=== PATIENT | female | born 1960 | race Caucasian/White ===

== ENCOUNTER 2023-06-14 21:51 | Emergency (ER) | payer MEDICARE, MEDICAID ==
[~2023-06-14] VITALS: Ht 162.6 cm; Wt 106.1 kg
[~2023-06-14 21:51] MED LIST: CYCL-1 PO; DULO60CA59 PO; ESOM40CA PO; LURA60TA PO; OXYC-150 PO
[2023-06-14 21:57] VITALS: TEMP 97
[2023-06-15] MEDS ORDERED: LIDO700A32 TOP (00:14)
[2023-06-15] MEDS ORDERED: LIDOcaine 5% patch TP ONE (00:15)
[2023-06-15] MEDS ORDERED: ketorolac trometh inj. 60 MG/2 ML VIAL IM ONE (00:15)
[2023-06-15 00:54] VITALS: BP 121/94; PULSE 78; RESP 15; O2SAT 96
== END 2023-06-15 00:56 | disposition home or self-care (01) ==
LOC: ER 21:53
DX: R07.81 Pleurodynia (principal); K21.9 Gastro-esophageal reflux disease without esophagitis; F32.A Depression, unspecified; Z98.890 Other specified postprocedural states
CPT/HCPCS: 71046; 96372; 99283; J1885

== ENCOUNTER 2024-02-05 12:08 | Inpatient (IN) | payer MEDICARE, MEDICAID ==
[~2024-02-05] VITALS: Ht 163.8 cm; Wt 100.7 kg
[~2024-02-05 12:08] MED LIST changes: +LIDO700A32 TOP
[2024-02-05] MEDS: ipratropium/albuterol 3ml nebule NEB ONE (12:57)
[2024-02-05 12:58] VITALS: PULSE 80; RESP 20; O2SAT 94
[2024-02-05 13:05] VITALS: PULSE 85; RESP 18; O2SAT 96
[2024-02-05 13:09] LABS: HEMOGLOBIN 13.3 g/dl (12.0-16.0); WHITE BLOOD COUNT 3.1 X10'3 (4.5-11.0)
[2024-02-05 13:11] LABS: BASOPHILS % (AUTO) 0.4 % (0-1); EOSINOPHILS % (AUTO) 0 % (0-6); HEMATOCRIT 39.1 % (35.0-45.0); LYMPHOCYTES # (AUTO) 0.6 X10'3 (1.1-4.8); LYMPHOCYTES % (AUTO) 18.7 % (21-51); MEAN CORPUSCULAR HEMOGLOBIN 35.6 PG (27.0-31.0); MEAN CORPUSCULAR VOLUME 104.6 FL (78-98); MONOCYTES # (AUTO) 0.2 X10'3 (0-0.9); MONOCYTES % (AUTO) 7.7 % (2-12); NEUTROPHILS # (AUTO) 2.3 X10'3 (1.8-7.7); NEUTROPHILS % (AUTO) 73.2 % (42-75); PLATELET COUNT 141 X10'3 (140-440); RED BLOOD COUNT 3.73 X10'6 (4.20-5.60); RED CELL DISTRIBUTION WIDTH 13.3 % (11.5-14.5)
[2024-02-05] MEDS: methylPREDNISolone sod succ 125mg/2ml vial IV ONE (13:19)
[2024-02-05 13:22] LABS: ALANINE AMINOTRANSFERASE 24 U/L (12-78); ALBUMIN 2.9 G/DL (3.4-5.0); ALBUMIN/GLOBULIN RATIO 0.7 (1.1-1.5); ALKALINE PHOSPHATASE 86 IU/L (46-116); ANION GAP 10 (8-16); ASPARTATE AMINO TRANSFERASE 35 U/L (10-37); BILIRUBIN,TOTAL 0.3 MG/DL (0.1-1.0); BLOOD UREA NITROGEN 5 MG/DL (7-18); BUN/CREATININE RATIO 5.1 (10.0-20.0); CALCIUM 8.1 MG/DL (8.5-10.1); CHLORIDE 101 MMOL/L (99-107); CREATININE 0.98 MG/DL (0.40-0.90); GLUCOSE 100 MG/DL (70-104); POTASSIUM 3.4 MMOL/L (3.5-5.1); SODIUM 138 MMOL/L (135-145); TOTAL CARBON DIOXIDE 26.8 MMOL/L (24-32); TOTAL PROTEIN 7.1 G/DL (6.4-8.2); eCRCL 52 ML/MIN; eGFR 58 ML/MIN
[2024-02-05 13:30] LABS: C-REACTIVE PROTEIN 3.15 MG/DL (0.0-0.5); PRO BRAIN NATRIURETIC PEPTIDE 156 PG/ML (0-125)
[2024-02-05] MEDS ORDERED: CefTRIAXone/D5W-Rocephin 1gm 50 ML IV ONE (14:25)
[2024-02-05] MEDS ORDERED: CEFD300C3 PO (14:26)
[2024-02-05] MEDS ORDERED: ALBU18HF2 INH (14:26)
[2024-02-05] MEDS ORDERED: PRED20TA PO (14:26)
[2024-02-05] MEDS ORDERED: DOXY-1 PO (14:26)
[2024-02-05] MEDS ORDERED: LEVO-65 PO (14:31)
[2024-02-05] MEDS: azithromycin/NS 500mg/250ml 250 ML IV ONE (14:35)
[2024-02-05] MEDS ORDERED: magnesium hydroxide 30ml (MOM) UD suspension PO PRN (15:20)
[2024-02-05] MEDS ORDERED: potassium Cl 40MEQ/1/2NS 520ml 520 ML IV PRN (15:20)
[2024-02-05] MEDS ORDERED: ondansetron/PF 4mg/2ml inj IV PRN (15:20)
[2024-02-05] MEDS ORDERED: magnesium sulf-water 2g/50mL 50 ML IV PRN (15:20)
[2024-02-05] MEDS ORDERED: mag hydrox/Alum hydrox/simeth 30ml oral suspension PO PRN (15:20)
[2024-02-05] MEDS ORDERED: acetaminophen 325mg tablet PO PRN (15:20)
[2024-02-05] MEDS ORDERED: magnesium sulf-water 4G/100mL 100 ML IV PRN (15:20)
[2024-02-05] MEDS ORDERED: potassium Cl 20 mEq SR tablet PO PRN (15:20)
[2024-02-05] MEDS ORDERED: magnesium Cl slow-release 64mg tablet PO PRN (15:20)
[2024-02-05] MEDS: levoFLOXACIN-Levaquin 750MG/D5 150 ML IV STA (16:38)
[2024-02-05] MEDS ORDERED: levoFLOXACIN-Levaquin 750MG/D5 150 ML IV SCH (16:40)
[2024-02-05] MEDS ORDERED: albuterol 2.5 MG/3 ML nebule NEB PRN (17:10)
[2024-02-05 18:00] VITALS: BP 102/63; PULSE 76; RESP 20; TEMP 99.3; O2SAT 92
[2024-02-05] MEDS: ringers solution, lacted 1,000 ML IV SCH (18:23)
[2024-02-05 19:42] VITALS: PULSE 76; RESP 18; O2SAT 94
[2024-02-05] MEDS: docusate sod 100mg capsule PO SCH (20:00)
[2024-02-05] MEDS: K and/or MAG REPLACEMENT MC SCH (20:14)
[2024-02-05] MEDS: guaiFENesin ER 600mg tablet PO SCH (20:28)
[2024-02-05] MEDS: traZODone 50mg tablet PO SCH (20:28)
[2024-02-05] MEDS: pramipexole 0.25mg tablet PO SCH (20:29)
[2024-02-05] MEDS: heparin, porcine 5000 units/ml vial SQ SCH (20:29)
[2024-02-05] MEDS: potassium Cl 20 mEq SR tablet PO PRN (20:30)
[2024-02-05 22:00] VITALS: BP 125/68; PULSE 77; RESP 20; TEMP 98.8; O2SAT 93
[2024-02-05] MEDS: oxyCODONE/APAP 10/325mg tablet PO PRN (22:03)
[2024-02-05] MEDS ORDERED: SERT25TA PO (23:38)
[2024-02-06] VITALS (13 sets, daily range): BP systolic 103–125; BP diastolic 61–77; PULSE 67–77; RESP 13–19; TEMP 97–98.7; O2SAT 91–99
[2024-02-06] MEDS ORDERED: gabapentin 400mg capsule PO SCH
[2024-02-06] MEDS: gabapentin 300mg capsule PO SCH (02:20)
[2024-02-06 06:14] LABS: BASOPHILS % (AUTO) 0.3 % (0-1); EOSINOPHILS % (AUTO) 0 % (0-6); HEMOGLOBIN 12.7 g/dl (12.0-16.0); LYMPHOCYTES # (AUTO) 0.4 X10'3 (1.1-4.8); LYMPHOCYTES % (AUTO) 23.2 % (21-51); MEAN CORPUSCULAR HEMOGLOBIN 35.3 PG (27.0-31.0); MEAN CORPUSCULAR HGB CONC 33.5 g/dL (33.0-36.5); MEAN CORPUSCULAR VOLUME 105.4 FL (78-98); MEAN PLATELET VOLUME 6.8 FL (7.4-10.4); MONOCYTES # (AUTO) 0.2 X10'3 (0-0.9); MONOCYTES % (AUTO) 10.1 % (2-12); NEUTROPHILS # (AUTO) 1.1 X10'3 (1.8-7.7); NEUTROPHILS % (AUTO) 66.4 % (42-75); PLATELET COUNT 117 X10'3 (140-440); RED CELL DISTRIBUTION WIDTH 13.6 % (11.5-14.5); WHITE BLOOD COUNT 1.7 X10'3 (4.5-11.0)
[2024-02-06 06:24] LABS: APTT 29 SECONDS (22-32); PROTHROMBIN TIME 10.6 SECONDS (9.0-12.0)
[2024-02-06 06:36] LABS: ALANINE AMINOTRANSFERASE 22 U/L (12-78); ALBUMIN 2.6 G/DL (3.4-5.0); ALBUMIN/GLOBULIN RATIO 0.6 (1.1-1.5); ALKALINE PHOSPHATASE 73 IU/L (46-116); ANION GAP 6 (8-16); ASPARTATE AMINO TRANSFERASE 28 U/L (10-37); BILIRUBIN,TOTAL 0.3 MG/DL (0.1-1.0); BLOOD UREA NITROGEN 11 MG/DL (7-18); BUN/CREATININE RATIO 11.7 (10.0-20.0); CALCIUM 8.5 MG/DL (8.5-10.1); CHLORIDE 104 MMOL/L (99-107); CREATININE 0.94 MG/DL (0.40-0.90); GLUCOSE 131 MG/DL (70-104); MAGNESIUM 1.9 MG/DL (1.5-2.4); PHOSPHORUS 2.7 MG/DL (2.3-4.5); POTASSIUM 4.3 MMOL/L (3.5-5.1); SODIUM 140 MMOL/L (135-145); TOTAL CARBON DIOXIDE 29.7 MMOL/L (24-32); TOTAL PROTEIN 6.9 G/DL (6.4-8.2); eCRCL 55 ML/MIN; eGFR 60 ML/MIN
[2024-02-06 07:11] LABS: PLATELET ESTIMATE DECREASED; TOTAL CELLS COUNTED 100
[2024-02-06] MEDS: pantoprazole 40mg Tablet.DR PO SCH (07:41)
[2024-02-06] MEDS: sertraline 50mg tablet PO SCH (08:38)
[2024-02-06 09:01] LABS: D-DIMER 0.64 MG/L FEU (0-0.50)
[2024-02-06 10:44] LABS: BILIRUBIN,URINE NEGATIVE (Neg); CLARITY,URINE SLIGHTLY CLOUDY (Clear); COLOR,URINE YELLOW (Yellow); GLUCOSE, URINE NEGATIVE (Neg); KETONES,URINE NEGATIVE (Neg); LEUKOCYTE ESTERASE ,URINE TRACE (Neg); NITRITES, URINE NEGATIVE (Neg); OCCULT BLOOD,URINE SMALL (Neg); PH,URINE 6.5 (4.8-8.0); PROTEIN,URINE NEGATIVE (Neg); UROBILINOGEN,URINE 0.2 E.U/dL (0.2-1.0)
[2024-02-06 10:50] LABS: UA COLLECTION TYPE NON-SPECIFIED
[2024-02-06 10:51] LABS: SQUAMOUS EPITHELIAL CELL,UR MANY /LPF (FEW)
[2024-02-06 10:52] LABS: BACTERIA,URINE FEW /HPF (Neg); HYALINE CASTS 0-3 /LPF (NEGATIVE); MUCUS STRANDS FEW /LPF (Neg); YEAST FEW /HPF (NEGATIVE)
[2024-02-06 10:53] LABS: WBC,URINE 0-4 /HPF (0-4)
[2024-02-06 11:06] LABS: URINE AMPHETAMINE SCREEN NEGATIVE (Neg); URINE BARBITUATE SCREEN NEGATIVE (Neg); URINE BENZODIAZEPINES SCREEN NEGATIVE (Neg); URINE CANNABINOID SCREEN NEGATIVE (Neg); URINE COCAINE SCREEN NEGATIVE (Neg); URINE METHADONE SCREEN NEGATIVE (Neg); URINE OPIATE SCREEN POSITIVE (Neg); URINE PHENCYCLIDINE SCREEN NEGATIVE (Neg)
[2024-02-06] MEDS: furosemide 40mg/4ml inj IV ONE (11:55)
[2024-02-06] MEDS: methylPREDNISolone sod succ 125mg/2ml vial IV SCH (11:55)
[2024-02-06] MEDS ORDERED: albuterol 2.5 MG/3 ML nebule NEB SCH (13:40)
[2024-02-06] MEDS: nystatin 15 GM powder TP SCH (13:52)
[2024-02-06] MEDS: ipratropium/albuterol 3ml nebule NEB PRN (15:11)
[2024-02-06] MEDS: levoFLOXACIN-Levaquin 750MG/D5 150 ML IV SCH (16:02)
[2024-02-06] MEDS: albuterol 2.5 MG/3 ML nebule NEB SCH (21:05)
[2024-02-07] VITALS (8 sets, daily range): BP systolic 101–141; BP diastolic 63–77; PULSE 66–77; RESP 16–18; TEMP 97.5–98.4; O2SAT 91–94
[2024-02-07 05:52] LABS: BASOPHILS % (AUTO) 0.1 % (0-1); EOSINOPHILS % (AUTO) 0 % (0-6); HEMATOCRIT 39.9 % (35.0-45.0); HEMOGLOBIN 13.5 g/dl (12.0-16.0); LYMPHOCYTES # (AUTO) 0.3 X10'3 (1.1-4.8); MEAN CORPUSCULAR HEMOGLOBIN 35.7 PG (27.0-31.0); MEAN CORPUSCULAR HGB CONC 33.7 g/dL (33.0-36.5); MEAN CORPUSCULAR VOLUME 105.8 FL (78-98); MEAN PLATELET VOLUME 7.2 FL (7.4-10.4); MONOCYTES # (AUTO) 0.4 X10'3 (0-0.9); MONOCYTES % (AUTO) 9.3 % (2-12); NEUTROPHILS # (AUTO) 4.1 X10'3 (1.8-7.7); NEUTROPHILS % (AUTO) 84.6 % (42-75); PLATELET COUNT 133 X10'3 (140-440); RED BLOOD COUNT 3.77 X10'6 (4.20-5.60); RED CELL DISTRIBUTION WIDTH 13.7 % (11.5-14.5); WHITE BLOOD COUNT 4.8 X10'3 (4.5-11.0)
[2024-02-07 05:58] LABS: APTT 25 SECONDS (22-32); PROTHROMBIN TIME 10.3 SECONDS (9.0-12.0)
[2024-02-07 06:30] LABS: ALANINE AMINOTRANSFERASE 25 U/L (12-78); ALBUMIN 2.7 G/DL (3.4-5.0); ALBUMIN/GLOBULIN RATIO 0.6 (1.1-1.5); ALKALINE PHOSPHATASE 68 IU/L (46-116); ANION GAP 9 (8-16); ASPARTATE AMINO TRANSFERASE 27 U/L (10-37); BILIRUBIN,TOTAL 0.3 MG/DL (0.1-1.0); BLOOD UREA NITROGEN 15 MG/DL (7-18); BUN/CREATININE RATIO 14.9 (10.0-20.0); CALCIUM 8.7 MG/DL (8.5-10.1); CHLORIDE 101 MMOL/L (99-107); CREATININE 1.01 MG/DL (0.40-0.90); GLUCOSE 132 MG/DL (70-104); MAGNESIUM 2.1 MG/DL (1.5-2.4); PHOSPHORUS 3.2 MG/DL (2.3-4.5); POTASSIUM 3.9 MMOL/L (3.5-5.1); SODIUM 139 MMOL/L (135-145); TOTAL CARBON DIOXIDE 28.7 MMOL/L (24-32); TOTAL PROTEIN 7.3 G/DL (6.4-8.2); eCRCL 51 ML/MIN; eGFR 56 ML/MIN
[2024-02-07] MEDS: furosemide 40mg/4ml inj IV SCH (09:01)
[2024-02-07] MEDS ORDERED: PRED10TA PO (13:45)
[2024-02-07] MEDS ORDERED: FURO-150 PO (13:45)
[2024-02-07] MEDS ORDERED: LEVO750T68 PO ×2 (13:45→17:14)
[2024-02-07] MEDS ORDERED: FLUC100T40 PO (17:33)
[2024-02-08] MEDS ORDERED: levoFLOXACIN 750MG TABLET PO SCH (11:00)
== END 2024-02-07 16:10 | disposition home or self-care (01) | DRG 177 ==
LOC: ER 12:09 → ED HOLD 15:22 → PCU 3S 19:00
PROVIDERS: ADMIT Internal Medicine; ATTEND Internal Medicine
DX: B37.1 Pulmonary candidiasis (principal); I26.09 Other pulmonary embolism with acute cor pulmonale; J96.01 Acute respiratory failure with hypoxia; R65.11 Systemic inflammatory response syndrome (SIRS) of non-infectious origin with acute organ dysfunction; J44.1 Chronic obstructive pulmonary disease with (acute) exacerbation; J44.0 Chronic obstructive pulmonary disease with (acute) lower respiratory infection; M06.9 Rheumatoid arthritis, unspecified; G89.29 Other chronic pain; Z96.653 Presence of artificial knee joint, bilateral; F41.9 Anxiety disorder, unspecified; G25.81 Restless legs syndrome; D75.89 Other specified diseases of blood and blood-forming organs; Z20.822 Contact with and (suspected) exposure to COVID-19; F32.A Depression, unspecified; D70.9 Neutropenia, unspecified; K21.9 Gastro-esophageal reflux disease without esophagitis; M54.9 Dorsalgia, unspecified; Z88.0 Allergy status to penicillin; Z87.891 Personal history of nicotine dependence; Z79.899 Other long term (current) drug therapy; Z90.49 Acquired absence of other specified parts of digestive tract; Z91.09 Other allergy status, other than to drugs and biological substances
CPT/HCPCS: 36415; 71045; 71250; 80053; 80305; 81001; 83605; 83735; 83880; 84100; 84145; 84484; 85007; 85025; 85379; 85610; 85730; 86140; 87040; 87070; 87081; 87502; 87503; 87811; 93005; 93306; 94640; 94664; 94760; 96374; 96375; 99285; A4615; A6258; G0378; J0456; J1644; J1940; J1956; J2919; J7120

== ENCOUNTER 2024-02-29 11:58 | Emergency (ER) | payer MEDICARE, MEDICAID ==
[~2024-02-29] VITALS: Ht 162.6 cm; Wt 101.3 kg
[~2024-02-29 11:58] MED LIST changes: +FURO-150 PO; +LEVO750T68 PO; -LIDO700A32 TOP; +PRED10TA PO; +SERT25TA PO
[2024-02-29 13:43] LABS: BASOPHILS % (AUTO) 0.2 % (0-1); EOSINOPHILS # (AUTO) 0.1 X10'3 (0-0.9); EOSINOPHILS % (AUTO) 0.8 % (0-6); HEMATOCRIT 38.3 % (35.0-45.0); HEMOGLOBIN 12.9 g/dl (12.0-16.0); LYMPHOCYTES # (AUTO) 0.9 X10'3 (1.1-4.8); LYMPHOCYTES % (AUTO) 7.8 % (21-51); MEAN CORPUSCULAR HEMOGLOBIN 34.6 PG (27.0-31.0); MEAN CORPUSCULAR HGB CONC 33.6 g/dL (33.0-36.5); MEAN CORPUSCULAR VOLUME 102.9 FL (78-98); MONOCYTES # (AUTO) 0.6 X10'3 (0-0.9); MONOCYTES % (AUTO) 5.7 % (2-12); NEUTROPHILS # (AUTO) 9.6 X10'3 (1.8-7.7); NEUTROPHILS % (AUTO) 85.5 % (42-75); PLATELET COUNT 159 X10'3 (140-440); RED BLOOD COUNT 3.73 X10'6 (4.20-5.60); RED CELL DISTRIBUTION WIDTH 13.8 % (11.5-14.5); WHITE BLOOD COUNT 11.3 X10'3 (4.5-11.0)
[2024-02-29 14:03] LABS: ALBUMIN 2.9 G/DL (3.4-5.0); ANION GAP 5 (8-16); BLOOD UREA NITROGEN 12 MG/DL (7-18); BUN/CREATININE RATIO 14.1 (10.0-20.0); CALCIUM 8.4 MG/DL (8.5-10.1); CHLORIDE 103 MMOL/L (99-107); CREATININE 0.85 MG/DL (0.40-0.90); GLUCOSE 113 MG/DL (70-104); POTASSIUM 3.2 MMOL/L (3.5-5.1); PRO BRAIN NATRIURETIC PEPTIDE 106 PG/ML (0-125); SODIUM 136 MMOL/L (135-145); eCRCL 59 ML/MIN; eGFR 68 ML/MIN
[2024-02-29] MEDS ORDERED: ipratropium/albuterol 3ml nebule NEB ONE (14:20)
[2024-02-29] MEDS: predniSONE 20 mg tablet PO ONE (14:58)
[2024-02-29] MEDS ORDERED: NIRM1TAB9 PO (15:34)
[2024-02-29] MEDS ORDERED: PRED20TA PO (15:34)
[2024-02-29 16:07] VITALS: BP 106/67; PULSE 82; RESP 14; TEMP 97.1; O2SAT 98
== END 2024-02-29 16:09 | disposition home or self-care (01) ==
LOC: ER 11:58
DX: U07.1 COVID-19 (principal); J20.9 Acute bronchitis, unspecified; K21.9 Gastro-esophageal reflux disease without esophagitis; G89.29 Other chronic pain; F17.210 Nicotine dependence, cigarettes, uncomplicated; J44.9 Chronic obstructive pulmonary disease, unspecified; Z88.0 Allergy status to penicillin; Z79.899 Other long term (current) drug therapy; Z88.1 Allergy status to other antibiotic agents; Z90.49 Acquired absence of other specified parts of digestive tract
CPT/HCPCS: 36415; 71046; 80048; 83605; 83880; 84145; 85025; 87040; 99284; J7512

== ENCOUNTER 2024-03-06 15:16 | Emergency (ER) | payer MEDICARE, MEDICAID ==
[~2024-03-06] VITALS: Ht 162.6 cm; Wt 103.0 kg
[~2024-03-06 15:16] MED LIST changes: +NIRM1TAB9 PO; +PRED20TA PO
[2024-03-06 15:36] VITALS: BP 163/93; PULSE 102; RESP 16; TEMP 98.2; O2SAT 95
[2024-03-06] MEDS ORDERED: CLOT10TR5 PO (16:00)
== END 2024-03-06 16:09 | disposition home or self-care (01) ==
LOC: ER 15:17
DX: U07.1 COVID-19 (principal); B37.0 Candidal stomatitis; J44.9 Chronic obstructive pulmonary disease, unspecified; K21.9 Gastro-esophageal reflux disease without esophagitis; G89.29 Other chronic pain; M54.9 Dorsalgia, unspecified; F41.9 Anxiety disorder, unspecified; Z90.49 Acquired absence of other specified parts of digestive tract; Z98.890 Other specified postprocedural states; Z88.0 Allergy status to penicillin; Z79.899 Other long term (current) drug therapy; Z79.2 Long term (current) use of antibiotics; Z79.52 Long term (current) use of systemic steroids
CPT/HCPCS: 99283

== ENCOUNTER 2024-10-23 23:31 | Emergency (ER) | payer MEDICARE, MEDICAID ==
[~2024-10-23] VITALS: Ht 165.1 cm; Wt 109.1 kg
[~2024-10-23 23:31] MED LIST changes: -PRED20TA PO
--- NOTE | 2024-10-24 00:53 | Physician Documentation ---
History of Present Illness ~ Chief Complaint: Knee Pain Stated Complaint: KNEE INFECTION Time Seen by MD: 00:47 Primary Medical Doctor: ALEENA DAMON Patient presents to the emergency room for evaluation of knee and right arm pain. Patient's history is complicated because of septic arthritis of her right knee. Hardware was recently taken out by [facility] and a place her was inserted until the infection gets under control. Patient has a PICC line placed in her right upper extremity. Tetanus witin 5 years: Yes Medication Reconciliation Allergies: Coded Allergies: Penicillins (Verified Allergy, Unknown, 02/29/24) Uncoded Allergies: TAPE (Allergy, Unknown, 12/24/15) Scheduled Duloxetine HCl (Cymbalta), 1 CAP PO HS, (Reported) Esomeprazole Magnesium (Nexium), 1 CAP PO DAILY, (Reported) Furosemide (Lasix), 20 MG PO DAILY Levofloxacin (Levofloxacin), 750 MG PO DAILY Lurasidone HCl (Latuda), 2 TAB PO QDD, (Reported) Nirmatrelvir/Ritonavir (Paxlovid 300-100 mg Dose Pack), 3 TAB PO BID Prednisone (Prednisone), 10 MG PO DAILY Sertraline Hcl* (Zoloft*), 2 TAB PO HS, (Reported) Scheduled PRN Cyclobenzaprine* (Cyclobenzaprine*), 1 TABLET PO Q8H PRN for muscle spasms, (Reported) Oxycodone HCl/Acetaminophen (Percocet 10-325 mg Tablet), 1 TAB PO Q4H PRN for pa in, (Reported) Past Medical History Past Medical History: COPD, Pneumonia, GERD, Chronic Back Pain, Anxiety Past Surgical History: cholecystectomy, orthopedic surgeries Alcohol Use: None Drug Use: none Lives In: Home Physical Exam Vital Signs: Temperature: 99.2, Source: Oral, Heart Rate: 103, Respiratory Rate: 20, BP: 131/89, Pulse Oximetry: 95, Weight: 109.090 Oxygen Flow Rate: 2.0 Procedures Procedures Shoulder arthrocentesis Side right Indication effusion Consent verbal Area prepped with ChloraPrep 10 cc of lidocaine injected 18 gauge needle inserted posterior approach no fluid obtained Progress Progress Note 1100 Case discussed with her orthopedic surgeon at [facility]. He is recommending arthrocentesis to rule out septic joint 1145 Arthrocentesis attempted here with no fluid obtained 2:00 p.m. Case discussed with Dr. Reyes orthopedic surgeon who is requesting that we send the patient for interventional radiology for fluoroscopic arthrocentesis 2:40 p.m. Case discussed with [facility] they will look into bed availability 4:00 p.m. [facility] has no availability for transfer they are declining transfer Results/Orders Results/Orders Orders - KENDRICK COLE MD Monitor (10/24/24 00:28) Saline Lock (10/24/24 00:28) Straight Cath For Urine Sample (10/24/24 00:28) Ct Lower Extremity (10/24/24 03:00) Ct Upper Extremities (10/24/24 03:00) Completed Orders - KENDRICK COLE MD Cbc/Diff (10/24/24 00:28) Procalcitonin (10/24/24 00:28) BMP (10/24/24 00:28) Lacticsepsis (10/24/24 00:28) Troponin (Single) (10/24/24 00:51) Hydromorphone 1 Mg/Ml/Pf (Dilaudid Inj.) (10/24/24 00:55) Ondansetron Inj. (Zofran 4mg/2ml Vial) (10/24/24 00:55) Fentanyl/Pf (Fentanyl 0.05 Mg/Ml Syringe (10/24/24 01:45) Midazolam 1 Mg/Ml 2ml Inj. (Versed 1 Mg/ (10/24/24 01:45) Ct Lower Extremity (10/24/24 03:00) Ct Upper Extremities (10/24/24 03:00) Normal Saline 1000ml (Sodium Chloride 10 (10/24/24 02:20) Ketorolac Trometh 15mg/Ml Vial (Toradol (10/24/24 02:20) Iohexol 300mg/Ml 50ml Inj. (Omnipaque-30 (10/24/24 03:14) Iohexol 300mg/Ml 100ml Inj. (Omnipaque-3 (10/24/24 03:14) Ua W/Microscopic, Cult If Ind (10/24/24 09:57) Potassium Cl Sr Tablet (K-Dur Tablet) (10/24/24 18:57) Ketorolac Trometh 15mg/Ml Vial (Toradol (10/24/24 19:00) Morphine 4mg/Ml Inj. (Morphine Inj.) (10/24/24 19:00) Medications Received in ER Medications (Trade) Dose Ordered Sig/Thomas Route PRN Reason Start Time Stop Time Status Last Admin Dose Admin (morphine inj.) 4 mg ONCE ONCE IV 10/24/24 11:50 10/24/24 11:51 DC 10/24/24 12:03 4 MG (morphine inj.) 4 mg ONCE ONCE IV 10/24/24 13:00 10/24/24 13:01 DC 10/24/24 13:34 4 MG (morphine sulfate IR 15mg tablet) 15 mg ONCE ONCE PO 10/24/24 15:05 10/24/24 15:06 DC 10/24/24 16:11 15 MG Vital Signs 10/23/24 10/23/24 10/23/24 10/24/24 23:33 23:46 23:50 00:56 Temp 99.2 99.2 Pulse 106 103 Resp 22 20 18 18 B/P (MAP) 135/82 131/89 (103) Pulse Ox 94 95 O2 Flow Rate 0 2.0 10/24/24 10/24/24 10/24/24 10/24/24 01:18 01:46 01:53 02:32 Pulse 105 94 Resp 19 20 15 14 B/P (MAP) 117/89 (98) Pulse Ox 95 95 O2 Flow Rate 2.0 2.0 10/24/24 10/24/24 10/24/24 10/24/24 03:10 03:43 04:43 05:38 Pulse 96 94 91 Resp 14 16 20 14 B/P (MAP) 122/83 (96) 134/82 (99) 132/77 (95) Pulse Ox 93 94 O2 Flow Rate 2.0 2.0 10/24/24 10/24/24 10/24/24 10/24/24 07:37 07:38 08:20 08:26 Resp 15 15 14 14 B/P (MAP) 10/24/24 10/24/24 10/24/24 10/24/24 08:26 12:34 13:34 14:04 Pulse 86 Resp 14 15 15 15 B/P (MAP) 99/72 (81) Pulse Ox 95 O2 Flow Rate 2.0 5/28/25 10/24/24 10/24/24 10/24/24 16:11 17:33 17:35 18:51 Temp 99.2 Pulse 82 91 Resp 16 16 13 16 B/P (MAP) 110/74 (86) 126/75 (92) Pulse Ox 94 96 O2 Flow Rate 2.0 2.0 10/24/24 18:53 Resp 18 B/P (MAP) Laboratory Tests Test 10/24/24 00:44 10/24/24 09:57 White Blood Count 9.7 Red Blood Count 2.78 L Hemoglobin 8.3 L Hematocrit 24.4 L Mean Corpuscular Volume 88.0 Mean Corpuscular Hemoglobin 29.9 Mean Corpuscular Hemoglobin Concent 34.0 Red Cell Distribution Width 14.6 H Platelet Count 255 Mean Platelet Volume 6.6 L Neutrophils (%) (Auto) 79.9 H Lymphocytes (%) (Auto) 8.7 L Monocytes (%) (Auto) 10.1 Eosinophils (%) (Auto) 0.5 Basophils (%) (Auto) 0.8 Neutrophils # (Auto) 7.7 Lymphocytes # (Auto) 0.8 L Monocytes # (Auto) 1.0 H Eosinophils # (Auto) 0.1 Basophils # (Auto) 0.1 CBC Comment Sodium Level 135 Potassium Level 3.0 *L Chloride Level 101 Carbon Dioxide Level 28.3 Anion Gap 6 L Blood Urea Nitrogen 7 Creatinine 0.97 H Estimated GFR/1.73 m2 58 BUN/Creatinine Ratio 7.2 L Glucose Level 139 H Lactic Acid Level 0.7 Calcium Level 8.3 L Troponin I High Sensitivity 7 Albumin 2.8 L Procalcitonin 0.06 Chemistry Comments Urine Specimen Description Voided Urine Color Yellow Urine Clarity Clear Urine pH 5.5 Urine Specific [place] 1.010 Urine Protein Negative Urine Glucose (UA) Negative Urine Ketones Negative Urine Occult Blood Trace-intact Urine Nitrite Negative Urine Bilirubin Negative Urine Urobilinogen 0.2 Urine Leukocyte Esterase Negative Urine RBC 3-10 Urine WBC None seen Urine Squamous Epithelial Cells Few Urine Bacteria None seen Urine Culture Indicated Not ind Volume Urine Centrifuged 10 ml Urine Comment Medical Decision Making Findings Patient presented to the emergency room with right knee and right shoulder pain right shoulder pain much greater than right knee pain. Patient has known history of infection to her right knee for which she is currently getting antibiotics. CT scan performed of the right shoulder which did show small effusion. Contacted [facility] who recommended arthrocentesis to evaluate the joint effusion to see if this is an infection related to seeding from her right knee. Attempts in our emergency room fail. We do not have interventional radiology only are attempted to contact both [facility] in [facility] for IR intervention however they have not been available at this time. Patient is asking to leave. She demonstrates capacity and understands the risks in his spoken with her primary care provider regarding follow up monitoring and intervention as they believe this is related to her RA diagnosis and not an infectious process. ER precautions discussed. Departure Disposition: HOME / SELF CARE / HOMELESS Impression: Primary Impression: Effusion, right shoulder Additional Impression: Infection of prosthetic right knee joint Condition: Fair Discharge Instructions: Septic Arthritis Additional Instructions: I am giving you directions on septic arthritis. This is not a confirmed diagnosis but the concern and I am giving you information regarding this. Follow up with your doctor as discussed and return to the emergency room for worsening of symptoms or fevers. Referrals: NO PRIMARY CARE PROVIDER (PCP) Education Educated: Patient Educated regarding: diagnosis, need for follow up Signature Scribe Signature: No scribe Attestation: The note accurately reflects work and decisions made by me.Kendrick Cole MD 10/24/24 19:12 KENDRICK COLE MD October 24, 2024 00:53 AKBAR DEJESUS MD October 24, 2024 16:55
[2024-10-24] MEDS: HYDROmorphone 1 mg/ml syringe IV ONE (00:56)
[2024-10-24] MEDS: ondansetron/PF 4mg/2ml inj IV ONE (00:56)
[2024-10-24 00:58] LABS: BASOPHILS # (AUTO) 0.1 X10'3 (0-0.2); BASOPHILS % (AUTO) 0.8 % (0-1); EOSINOPHILS # (AUTO) 0.1 X10'3 (0-0.9); EOSINOPHILS % (AUTO) 0.5 % (0-6); HEMATOCRIT 24.4 % (35.0-45.0); HEMOGLOBIN 8.3 g/dl (12.0-16.0); LYMPHOCYTES # (AUTO) 0.8 X10'3 (1.1-4.8); LYMPHOCYTES % (AUTO) 8.7 % (21-51); MEAN CORPUSCULAR HEMOGLOBIN 29.9 PG (27.0-31.0); MEAN PLATELET VOLUME 6.6 FL (7.4-10.4); MONOCYTES % (AUTO) 10.1 % (2-12); NEUTROPHILS # (AUTO) 7.7 X10'3 (1.8-7.7); NEUTROPHILS % (AUTO) 79.9 % (42-75); PLATELET COUNT 255 X10'3 (140-440); RED BLOOD COUNT 2.78 X10'6 (4.20-5.60); RED CELL DISTRIBUTION WIDTH 14.6 % (11.5-14.5); WHITE BLOOD COUNT 9.7 X10'3 (4.5-11.0)
[2024-10-24 01:15] LABS: ALBUMIN 2.8 G/DL (3.4-5.0); ANION GAP 6 (8-16); BLOOD UREA NITROGEN 7 MG/DL (7-18); BUN/CREATININE RATIO 7.2 (10.0-20.0); CALCIUM 8.3 MG/DL (8.5-10.1); CHLORIDE 101 MMOL/L (99-107); CREATININE 0.97 MG/DL (0.40-0.90); GLUCOSE 139 MG/DL (70-104); SODIUM 135 MMOL/L (135-145); TOTAL CARBON DIOXIDE 28.3 MMOL/L (24-32); eCRCL 54 ML/MIN; eGFR 58 ML/MIN
[2024-10-24] MEDS: midazolam 1 mg/ML 2ml injection IV ONE (01:52)
[2024-10-24] MEDS: fentaNYL/PF 50MCG/1 ML 2ML syringe IV ONE (01:53)
[2024-10-24] MEDS ORDERED: iohexol 300 MG/1 ML 50ml polymer ONE (03:14)
[2024-10-24] MEDS ORDERED: iohexol 300mg/ml 100ml inj. ONE (03:14)
[2024-10-24] MEDS: normal saline 1000ml 1,000 ML IV ONE (03:42)
[2024-10-24] MEDS: ketorolac trometh 15mg/ml vial 15 MG/ML ML IV ONE ×3 (03:43→19:09)
--- NOTE | 2024-10-24 05:01 | RADIOLOGY REPORT ---
CLINICAL INDICATION: pain TECHNIQUE: CT scan of the left lower extremity was performed with 150 mL omnipaque 300 intravenous co ntrast. Coronal and sagittal reformatted images are provided. COMPARISON: None CT Dose: CTDI volume is 10.0 mGy. Dose-length product is 438 mGy*cm FINDINGS: There is a total knee replacement with long segment cement spacers in the distal femur and proximal tibia. There is lucency and gas within the intramedullary cavity surrounding the cement high ly suspicious for infection. There is discontinuity through the cement in the distal femur. There is circumferential lucency surrounding the cement in the proximal tibia as well. There is a small peripr osthetic fracture in the medial proximal tibial cortex (coronal image 34). The polyethylene liner is not displaced. Joint effusion noted. Prepatellar soft tissue swelling and soft tissue swelling in th e calf. IMPRESSION: 1. Findings suspicious for infection in the distal femur and possible infection in the proximal tibi a. Soft tissue swelling. 2. Periprosthetic fracture in the medial cortex the proximal tibia. All CT scans at this medical facility are performed using dose modulation techniques as appropriate t o a performed exam including the following: Automated exposure control was utilized; adjustment of th e MA and/or KV according to patient size; and use of iterative reconstruction technique.
--- NOTE | 2024-10-24 05:43 | RADIOLOGY REPORT ---
INDICATION: pain COMPARISON: None TECHNIQUE: CT of the right upper extremity was performed with intravenous contrast. Volume transverse images were obtained and reconstructed in multiple planes using bone and soft tissue algorithms. Radiation Dose Information: CT Dose: CTDI volume is 28 mGy. Dose-length product is 855 mGy*cm FINDINGS/IMPRESSION: Right PICC in satisfactory position. The alignment is normal. Small shoulder joint effusion. Degenerative glenohumeral joint space narrowing. There is no fracture, dislocation or aggressive osseous lesion. There is no joint effusion. The soft tissues are normal.
[2024-10-24] MEDS: LIDOcaine 1% W/epiNEPHrine 1:100,000 20ml vial SQ ONE (07:10)
[2024-10-24] MEDS: morphine 4 MG/ML inj SYRINge IV ONE ×4 (07:38→19:09)
[2024-10-24 10:14] LABS: BILIRUBIN,URINE NEGATIVE (Neg); CLARITY,URINE CLEAR (Clear); COLOR,URINE YELLOW (Yellow); GLUCOSE, URINE NEGATIVE (Neg); KETONES,URINE NEGATIVE (Neg); LEUKOCYTE ESTERASE ,URINE NEGATIVE (Neg); OCCULT BLOOD,URINE TRACE-INTACT (Neg); PH,URINE 5.5 (4.8-8.0); PROTEIN,URINE NEGATIVE (Neg); UROBILINOGEN,URINE 0.2 E.U/dL (0.2-1.0)
[2024-10-24] MEDS: magnesium oxide 400mg tablet PO ONE (10:16)
[2024-10-24] MEDS: POTASSIUM CHLORIDE 20 MEQ/15 ML oral solution PO ONE (10:16)
[2024-10-24 10:18] LABS: NITRITES, URINE NEGATIVE (Neg); UA COLLECTION TYPE VOIDED
[2024-10-24 10:26] LABS: BACTERIA,URINE NONE SEEN /HPF (Neg); SQUAMOUS EPITHELIAL CELL,UR FEW /LPF (FEW); WBC,URINE NONE SEEN /HPF (0-4)
--- NOTE | 2024-10-24 11:08 | RADIOLOGY REPORT ---
PROCEDURE: Right shoulder radiographs. INDICATION: RT.shoulder pain TECHNIQUE: 2 views of the right shoulder were obtained. COMPARISON: None FINDINGS: There is a right PICC which terminates in the superior vena cava. There is no evidence of f racture or dislocation. Joint spaces are maintained. The soft tissues are unremarkable. IMPRESSION: 1. No fracture or dislocation.
[2024-10-24] MEDS: morphine sulfate IR 15MG tablet PO ONE (16:11)
[2024-10-24 18:51] VITALS: BP 126/75; PULSE 91; TEMP 99.2; O2SAT 96
[2024-10-24 18:53] VITALS: RESP 18
[2024-10-24] MEDS: potassium Cl 20 mEq SR tablet PO STA (19:07)
== END 2024-10-24 19:43 | disposition home or self-care (01) ==
LOC: ER 23:31
DX: M25.411 Effusion, right shoulder (principal); M79.601 Pain in right arm; M25.561 Pain in right knee; K21.9 Gastro-esophageal reflux disease without esophagitis; F41.9 Anxiety disorder, unspecified; J44.9 Chronic obstructive pulmonary disease, unspecified; Z88.0 Allergy status to penicillin; Z88.8 Allergy status to other drugs, medicaments and biological substances; Z90.49 Acquired absence of other specified parts of digestive tract
CPT/HCPCS: 20610; 36415; 73030; 73201; 73701; 80048; 81001; 83605; 84145; 84484; 85025; 96361; 96374; 96375; 96376; 99285; J1171; J1885; J2250; J2270; J2405; J3010; J7030; Q9967